=== PATIENT | male | born 1990 | race Caucasian/White ===

== ENCOUNTER 2018-05-31 14:53 | Emergency (ER) | payer OTHER ==
[~2018-05-31] VITALS: Ht 182.9 cm; Wt 70.3 kg
[2018-05-31] MEDS ORDERED: CLONAZEPAM1 MG (15:47)
[2018-05-31] MEDS ORDERED: PAXIL30 MG (15:48)
== END 2018-05-31 18:47 ==
LOC: ER 14:53
DX: R00.2 Palpitations (principal); F06.4 Anxiety disorder due to known physiological condition